=== PATIENT | female | born 1935 | race Caucasian/White ===

== ENCOUNTER 2018-10-30 14:35 | Outpatient (CLI) | payer MEDICARE, OTHER ==
--- NOTE | 2018-10-30 17:37 | ULT ---
ABDOMINAL ULTRASOUND: 10/30/18 PROVIDED CLINICAL HISTORY: Jaundice. FINDINGS: The visualized abdominal aorta appears nonaneurysmal. The IVC and pancreas appear normal as visualize d. The liver demonstrates no evidence for mass. The common duct is not dilated. Prominence of the int rahepatic biliary system is suspected. The gallbladder is contracted without evidence for stones. The kidneys demonstrate no hydronephrosis or solid mass. A simple cyst involves the left kidney. The spleen is not enlarged and demonstrates no focal abnormality. IMPRESSION: Prominence of the intrahepatic biliary system. Given the provided clinical history of jaundice, corre lation with CT of the abdomen and pelvis is suggested. POS: [facility]
--- NOTE | 2018-10-30 19:39 | CT ---
CT OF THE ABDOMEN AND PELVIS WITH IV CONTRAST: 10/30/18 PROVIDED CLINICAL HISTORY: Jaundice. FINDINGS: The visualized lung bases are free of significant opacity. There is intrahepatic biliary ductal dilatation, especially involving the left hepatic lobe. There is ill-defined low density mass present within the central aspects of the liver near the maya hepatis with associated attenuation of the distal extrahepatic main portal vein. The pancreas, spleen, and adrenal glands appear unremarkable. Bilateral renal cysts are seen. The kid neys appear otherwise unremarkable. There is no bowel dilatation, inflammatory fat stranding, free fluid or lymph node enlargement appare nt. The osseous structures demonstrate no concerning lytic or blastic lesions. IMPRESSION: Ill-defined hypodense mass within the central aspects of the liver in the region of the maya hepatis producing obstructive changes involving the biliary system, particularly the left hepatic lobe. Ther e is associated attenuation of the distal portions of the extrahepatic portal vein. Correlation with abdominal MRI may be useful in further evaluation. This may reflect cholangiocarcinoma or hepatocellu lar carcinoma. Metastatic lesion is also possible. Code T POS: [facility]
== END 2018-10-30 14:36 | disposition home or self-care (01) ==
LOC: NAV ULT 14:35
PROVIDERS: ATTEND Internal Medicine
DX: K83.1 Obstruction of bile duct (principal); R16.0 Hepatomegaly, not elsewhere classified
CPT/HCPCS: 74177; 76700